=== PATIENT | female | born 1980 | race Caucasian/White ===

== ENCOUNTER 2016-04-14 18:51 | Emergency (ER) | payer BC, OTHER ==
--- NOTE | 2016-04-14 20:58 | ED ---
General Adult HPI - General Chief complaint: Animal Bite Stated complaint: dog bite Time Seen by Provider: 04/14/16 20:18 Source: patient, RN notes reviewed Mode of arrival: ambulatory Limitations: no limitations - History of Present Illness Initial comments: This is a 35-year-old female presents with multiple dog bites. Patient states she saw a stray dog and went to look to see if it had a collar when the dog bit her. Patient states this happened around 2:30 PM today. Patient does not know the refrigerator room clerk of this dog and has never seen this dog before. Patient does not have possession of the dog. Patient states he is not up-to-date on her tetanus shot. Patient denies any abnormal behavior of the dog. Patient states the dog bit her bilateral hands and bilateral upper legs. Patient denies any tingling/ weakness. Patient does admit to some mild loss of sensation to left index finger but is still able to feel pressure. Patient denies any chance of being . Patient denies any recent fever, chills, shortness breath, chest pain , abdominal pain, nausea/vomiting/diarrhea, back pain, hematuria, headache, or visual changes, or any other complaints. - Related Data Home Medications Medication Instructions Recorded Confirmed Albuterol Inhaler [Ventolin 2 puff INHALATION Q4HR PRN 08/08/13 08/08/13 Inhaler] Previous Rx's Medication Instructions Recorded Naproxen [Naprosyn] 375 mg PO Q12HR #30 tablet 08/08/13 Amoxic-Pot Clav 875-125Mg 1 tab PO Q12HR 7 Days 04/14/16 [Augmentin 875-125] Allergies Allergy/AdvReac Type Severity Reaction Status Date / Time No Known Allergies Allergy Verified 04/14/16 19:17 Review of Systems ROS Statement: Those systems with pertinent positive or pertinent negative responses have been documented in the HPI. ROS Other: All systems not noted in ROS Statement are negative. Past Medical History Past Medical History: Asthma History of Any Multi-Drug Resistant Organisms: None Reported Past Surgical History: No Surgical Hx Reported Past Psychological History: No Psychological Hx Reported Smoking Status: Never smoker Past Alcohol Use History: Rare Past Drug Use History: None Reported General Exam - General Exam Comments Initial Comments: General: The patient is awake and alert, in no distress, and does not appear acutely ill. Mouth and throat: There are moist mucous membranes and no oral lesions. Neck: The neck is supple, there is no tenderness or JVD. Cardiovascular: There is a regular rate and rhythm. No murmur, rub or gallop is appreciated. Respiratory: Lungs are clear to auscultation, respirations are non-labored, breath sounds are equal. No wheezes, stridor, rales, or rhonchi Musculoskeletal: there is ecchymosis to the medial aspect of the left thigh and right thigh surrounding multiple puncture wounds from a dog bite. There are multiple dog bites to the patient's bilateral hands, the left forearm, and left elbow. Normal ROM, no tenderness. Strength 5/5. Sensation intact. Radial Pulses equal bilaterally 2+. Capillary refill is less than 2 seconds. Neurological: A&O x 3. CN II-XII intact, There are no obvious motor or sensory deficits. Coordination appears grossly intact. Speech is normal. Skin: Multiple dog bites to bilateral thighs, and bilateral hands and to the left mid forearm. Skin is warm and dry and no rashes or lesions are noted. Psychiatric: Cooperative, appropriate mood & affect, normal judgment. Limitations: no limitations Course Vital Signs 04/14/16 04/14/16 04/14/16 19:15 21:27 23:03 Temperature 98.6 F 98.0 F 97.9 F Pulse Rate 90 80 61 Respiratory 20 16 16 Rate Blood Pressure 111/73 113/60 104/58 O2 Sat by Pulse 98 98 98 Oximetry Medical Decision Making - Medical Decision Making This is a 35-year-old female who was bitten by a stray dog around 2:30 today. On physical exam there is ecchymosis to the medial aspect of the left thigh and right thigh surrounding multiple puncture wounds from a dog bite. There are multiple dog bites to the patient's bilateral hands, the left forearm, and left elbow. Normal ROM, no tenderness. Strength 5/5. Sensation intact. Radial Pulses equal bilaterally 2+. Capillary refill is less than 2 seconds. Discussed close follow-up with the patient's family physician if the sensation does not completely return to the left index finger, although patient is able to still feel pressure to this finger. I discussed that this loss of sensation may be due to the localized swelling from the dog bites. X-rays of the left hand and forearm were done and reviewed showing: X-rays of bilateral femurs were done and reviewed: X-ray and left colon No fracture. Small foreign body or calcification seen at the distal phalanx of the index finger. X-ray left forearm: No fracture. Mild soft tissue deformity could relate laceration. X-ray femur bilateral: Negative. Bilateral femur exam. 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 Wounds were cleansed thoroughly with normal saline. No foreign bodies are noted in the wound. Patient was given rabies vaccine and rabies immune globulin. Patient was also given a tetanus vaccine. Rabies immune globulin was injected in the wounds and then given IM. Discussed with patient that she will need rabies vaccine on days 3, 7 and 14. I discussed that the patient will be put on a course of Augmentin to prevent infection. I discussed wound care. I discussed return parameters. I discussed [id number] Tylenol and Motrin as needed for any pain. I discussed rest and ice to the areas. Discussed the importance of following up with the patient's family physician. Patient will be given a referral to family physician today. Discussed that patient should follow up with PCP in one to 2 days or return to the [facility] for any worsening symptoms or for any further concerns. . Patient was receptive to this plan and patient will be discharged home. I discussed his case with attending physician Dr. Greenberg who agrees the plan as stated above. Disposition Clinical Impression: Dog bite of multiple sites Disposition: HOME SELF-CARE Instructions: Animal Bite (ED), Rabies Vaccine (By injection), Rabies (ED), Rabies Vaccine (ED) Additional Instructions: Please come in for another rabies vaccine on days 3, 7 and 14 (04/17/16, 04/21/16, ). Please finish entire course of antibiotics. Please keep wound sites clean and covered. Please watch for signs of infection. Please rest and ice the wound areas. Please use [id number] Tylenol or Motrin. Please follow- up with family doctor in the next 2 days of symptoms have not improved. Please return to emergency room if the symptoms increase or worsen or for any other concerns. Prescriptions: Amoxic-Pot Clav 875-125Mg [Augmentin 875-125] 1 tab PO Q12HR 7 Days Referrals: None,Stated [Primary Care Provider] - 1-2 days Yolanda Roy MD [STAFF PHYSICIAN] - 1-2 days Cisco Dudley MD [REFERRING] - 1-2 days Nadia Estrada III, MD [STAFF PHYSICIAN] - 1-2 days Time of Disposition: 22:49
[2016-04-14] MEDS ORDERED: RABIES IMMUNE GLOB 150 UNIT/ML 10 ML VIAL IM ONE (21:03)
[2016-04-14] MEDS ORDERED: RABIES VACCINE (PCEC) 2.5 UNIT KIT IM ONE (21:03)
[2016-04-14 21:27] VITALS: RESP 16
--- NOTE | 2016-04-14 21:31 | XR ---
EXAMINATION TYPE: XR hand complete LT DATE OF EXAM: 04/14/2016 9:24 PM COMPARISON: NONE HISTORY: Pain TECHNIQUE: 3 views FINDINGS: I see no fracture nor dislocation. Joint spaces are normal. There is a 1 mm density adjacen t to the distal phalanx of the index finger. IMPRESSION: No fracture. Small foreign body or calcification seen at the distal phalanx of the index finger.
--- NOTE | 2016-04-14 21:32 | XR ---
EXAMINATION TYPE: XR forearm LT DATE OF EXAM: 04/14/2016 9:24 PM COMPARISON: NONE HISTORY: Dog bite TECHNIQUE: 2 views FINDINGS: Soft tissue deformity is seen in the mid forearm. I see no fracture nor dislocation. IMPRESSION: No fracture. Mild soft tissue deformity could relate to laceration.
--- NOTE | 2016-04-14 21:33 | XR ---
EXAMINATION TYPE: XR femur bilateral DATE OF EXAM: 04/14/2016 9:24 PM COMPARISON: NONE HISTORY: Abrasions. TECHNIQUE: 8 views FINDINGS: I see no fracture nor dislocation. Knee joints and hip joints appear intact. Soft tissues a ppear normal. IMPRESSION: Negative bilateral femur exam.
[2016-04-14] MEDS ORDERED: DIPH,PERTUS(ACELL)TETVAC-LF 0.5 ML VIAL IM ONE (22:52)
[2016-04-14 23:05] VITALS: BP 104/58; PULSE 61; TEMP 97.9
== END 2016-04-14 23:24 | disposition home or self-care (01) ==
LOC: EC 18:51
DX: S61.452A Open bite of left hand, initial encounter (principal); S61.451A Open bite of right hand, initial encounter; S71.152A Open bite, left thigh, initial encounter; S71.151A Open bite, right thigh, initial encounter; S51.852A Open bite of left forearm, initial encounter; S51.052A Open bite, left elbow, initial encounter; W54.0XXA Bitten by dog, initial encounter
CPT/HCPCS: 90375; 90471; 90675; 90715; 96372; 99283

== ENCOUNTER → 2020-07-17 | Outpatient (CLI) | payer OTHER ==
--- NOTE | 2020-07-17 13:35 | MM ---
Reason for exam: screening (asymptomatic). Baseline mammogram. History: Took hormonal contraceptives for 6 months. Physical Findings: Nurse did not find any significant physical abnormalities on exam. MG Screening Mammo w CAD Bilateral CC and MLO view(s) were taken. The breast tissue is heterogeneously dense. This may lower the sensitivity of mammography. Finding: There are indeterminate round calcifications in the left breast. Focal asymmetry 7mm anterior depth central MLO view only. These results were verbally communicated with the patient and result sheet given to the patient on 07/17/20. ASSESSMENT: Incomplete: need additional imaging evaluation, BI-RAD 0 RECOMMENDATION: Special view mammogram of the left breast.
--- NOTE | 2020-07-17 13:36 | MM ---
Reason for exam: additional evaluation requested from abnormal screening. History: Took hormonal contraceptives for 6 months. Physical Findings: Breast exam preformed at baseline screening. MG Work Up Mamm w CAD LT LM and spot compression MLO view(s) were taken of the left breast. The breast tissue is heterogeneously dense. This may lower the sensitivity of mammography. No distinct lesion persists in the left breast. These results were verbally communicated with the patient and result sheet given to the patient on 07/17/20. ASSESSMENT: Negative, BI-RAD 1 RECOMMENDATION: Return to routine screening mammogram schedule for both breasts.
== END | disposition home or self-care (01) ==
LOC: RADMAMWWP 10:08
PROVIDERS: ATTEND Internal Medicine
DX: Z12.31 Encounter for screening mammogram for malignant neoplasm of breast (principal); R92.8 Other abnormal and inconclusive findings on diagnostic imaging of breast
CPT/HCPCS: 77065; 77067

== ENCOUNTER 2021-08-25 23:25 | Emergency (ER) | payer OTHER ==
[2021-08-25 23:31] VITALS: RESP 18
--- NOTE | 2021-08-26 00:08 | XR ---
EXAMINATION TYPE: XR chest 2V DATE OF EXAM: 08/25/2021 COMPARISON: NONE HISTORY: Chest pain TECHNIQUE: 2 view FINDINGS: Heart and mediastinum are normal. Lungs are clear. Diaphragm is normal. Bony thorax appears normal. IMPRESSION: Normal chest
[2021-08-26 00:10] LABS: INR 0.9 (<1.2)
[2021-08-26 00:11] LABS: Partial Thromboplastin Time 27.1 sec (22.0-30.0); Prothrombin Time 9.9 sec (9.0-12.0)
[2021-08-26 00:12] LABS: ALT 20 U/L (4-34); AST 29 U/L (14-36); African American GFR (CKD) >90 (>60 ml/min/1.73 sqM); Albumin 4.1 g/dL (3.5-5.0); Alkaline Phosphatase 73 U/L (38-126); Anion Gap 5 mmol/L; Blood Urea Nitrogen 10 mg/dL (7-17); Calcium 8.6 mg/dL (8.4-10.2); Carbon Dioxide 23 mmol/L (22-30); Chloride 109 mmol/L (98-107); Glucose 92 mg/dL (74-99); Magnesium 2.2 mg/dL (1.6-2.3); Non-African American GFR(CKD) >90 (>60 ml/min/1.73 sqM); Potassium 4.1 mmol/L (3.5-5.1); Sodium 137 mmol/L (137-145); Total Bilirubin 0.2 mg/dL (0.2-1.3); Total Protein 6.8 g/dL (6.3-8.2)
[2021-08-26 00:13] LABS: Basophils # (A) 0.1 k/uL (0-0.2); Basophils % (A) 1 %; Eosinophils # (A) 0.3 k/uL (0-0.7); Eosinophils % (A) 5 %; HGB 13.5 gm/dL (11.4-16.0); Lymphocytes # (A) 2.1 k/uL (1.0-4.8); Lymphocytes % (A) 31 %; MCHC 32.2 g/dL (31.0-37.0); MCV 96.3 fL (80.0-100.0); Mean Platelet Volume 9.8; Monocytes # (A) 0.3 k/uL (0-1.0); Monocytes % (A) 5 %; Neutrophils # (A) 3.7 k/uL (1.3-7.7); Neutrophils % (A) 56 %; Platelet Count 217 k/uL (150-450); RBC 4.37 m/uL (3.80-5.40); RDW 13.8 % (11.5-15.5); WBC 6.6 k/uL (3.8-10.6)
--- NOTE | 2021-08-26 03:07 | ED ---
Chest Pain HPI - General Chief Complaint: Chest Pain Stated Complaint: chest pain, vag bleeding Time Seen by Provider: 08/26/21 02:01 Source: patient, RN notes reviewed, old records reviewed Mode of arrival: ambulatory Limitations: no limitations - History of Present Illness Initial Comments: This is a 41-year-old female to the emergency department for evaluation. Patient comes in for chest pain as a smoker with no medical history patient has no high blood pressure or cholesterol or diabetes. Patient is no travel history or sick contacts. Patient is of shortness of breath no cough or congestion no fevers. Patient concern for substernal left-sided chest pain with a little anxiety. MD Complaint: chest pain -: days(s) Onset: during rest, during exertion Pain Location: substernal, left chest Pain Radiation: none Severity: mild Severity scale (1-10): 3 Quality: tightness Consistency: intermittent Improves With: nothing Worsens With: nothing Other Symptoms: palpitations Treatments Prior to Arrival: none - Related Data Home Medications Medication Instructions Recorded Confirmed Albuterol Inhaler [Ventolin 2 puff INHALATION Q4HR PRN 08/08/13 08/08/13 Inhaler] Previous Rx's Medication Instructions Recorded Naproxen [Naprosyn] 375 mg PO Q12HR #30 tablet 08/08/13 Amoxic-Pot Clav 875-125Mg 1 tab PO Q12HR 7 Days tablet 04/14/16 [Augmentin 875-125] Allergies Allergy/AdvReac Type Severity Reaction Status Date / Time No Known Allergies Allergy Verified 08/25/21 23:31 Review of Systems ROS Statement: Those systems with pertinent positive or pertinent negative responses have been documented in the HPI. ROS Other: All systems not noted in ROS Statement are negative. Past Medical History Past Medical History: Asthma History of Any Multi-Drug Resistant Organisms: None Reported Past Surgical History: No Surgical Hx Reported Past Psychological History: Depression Smoking Status: Current every day smoker Past Alcohol Use History: Rare Past Drug Use History: None Reported General Exam Limitations: no limitations General appearance: alert, in no apparent distress, anxious Head exam: Present: atraumatic, normocephalic, normal inspection Eye exam: Present: normal appearance, PERRL, EOMI. Absent: scleral icterus, conjunctival injection, periorbital swelling ENT exam: Present: normal exam, mucous membranes moist Neck exam: Present: normal inspection. Absent: tenderness, meningismus, lymphadenopathy Respiratory exam: Present: normal lung sounds bilaterally. Absent: respiratory distress, wheezes, rales, rhonchi, stridor Cardiovascular Exam: Present: regular rate, normal rhythm, normal heart sounds. Absent: systolic murmur, diastolic murmur, rubs, gallop, clicks GI/Abdominal exam: Present: soft, normal bowel sounds. Absent: distended, tenderness, guarding, rebound, rigid Extremities exam: Present: normal inspection, full ROM, normal capillary refill. Absent: tenderness, pedal edema, joint swelling, calf tenderness Back exam: Present: normal inspection Neurological exam: Present: alert, oriented X3, CN II-XII intact Psychiatric exam: Present: normal affect, normal mood Skin exam: Present: warm, dry, intact, normal color. Absent: rash Course Vital Signs 08/25/21 08/26/21 08/26/21 23:29 02:10 03:38 Temperature 98.3 F 97.8 F Pulse Rate 76 62 64 Respiratory 18 18 18 Rate Blood Pressure 142/73 136/84 132/91 O2 Sat by Pulse 97 98 97 Oximetry - Reevaluation(s) Reevaluation #1: 08/26/21 Medical record is reviewed Reevaluation #2: 08/26/21 Patient informed results and questions are answered Reevaluation #3: 08/26/21 patient chest pain is resolved here in the ER Chest Pain MDM - MDM 41 female with atypical chest pain. Patient's chest pain is resolved here in the ER, this time her symptoms are improving she can be discharged home Disposition Clinical Impression: Chest pain, Atypical chest pain Disposition: HOME SELF-CARE Condition: Good Instructions (If sedation given, give patient instructions): Chest Pain (ED) Is patient prescribed a controlled substance at d/c from ED?: No Referrals: Ian Cuello MD [Primary Care Provider] - 1-2 days Time of Disposition: 03:00
[2021-08-26 03:39] VITALS: BP 132/91; PULSE 64; TEMP 97.8
== END 2021-08-26 03:41 | disposition home or self-care (01) ==
LOC: EC 23:25
DX: R07.89 Other chest pain (principal); J45.909 Unspecified asthma, uncomplicated; F17.200 Nicotine dependence, unspecified, uncomplicated
CPT/HCPCS: 36415; 71046; 80053; 83735; 84484; 85025; 85610; 85730; 93005

== ENCOUNTER → 2022-09-02 | Outpatient (CLI) | payer OTHER ==
--- NOTE | 2022-09-02 08:41 | XR ---
EXAMINATION TYPE: XR chest 2V DATE OF EXAM: 09/02/2022 COMPARISON: 08/25/2021 HISTORY: Chest pain TECHNIQUE: Frontal and lateral views of the chest are obtained. FINDINGS: There is no focal air space opacity. No evidence for pneumothorax. No pleural effusion. The cardiac silhouette size is within normal limits. The osseous structures are grossly intact. IMPRESSION: 1. No acute cardiopulmonary process.
--- NOTE | 2022-09-03 08:28 | MM ---
Reason for Exam: Screening (asymptomatic). Last mammogram was performed 1 year(s) and 1 month(s) ago. Patient History: Menarche at age 11. First Full-Term at age 16. Right ovary removed at age 41. Hormonal Contraceptives for 6 months. Risk Values: Linh 5 year model risk: 0.6%. NCI Lifetime model risk: 7.1%. Prior Study Comparison: 07/17/2020 Bilateral Screening Mammogram, [facility]. 07/17/2020 Left Diagnostic Mammogram, [facility]. 07/20/2021 Bilateral Screening Mammogram, [facility]. Tissue Density: The breast tissue is heterogeneously dense. This may lower the sensitivity of mammography. Findings: Analyzed By CAD. There is no suspicious group of microcalcifications or new suspicious mass in either breast. Overall Assessment: Negative, BI-RAD 1 Management: Screening Mammogram of both breasts in 1 year. . Patient should continue monthly self-breast exams. A clinical breast exam by your physician is recommended on an annual basis. This exam should not preclude additional follow-up of suspicious palpable abnormalities. Note on Linh scores and lifetime risk: 1. A Linh score greater than 3% is considered moderate risk. If this is the case, consider specialist referral to assess eligibility for a risk reducing agent. 2. If overall lifetime risk for the development of breast cancer is 20% or higher, the patient may qualify for future screening with alternating mammogram and breast MRI. Electronically signed and approved by: Jeff Meza M.D. Radiologis
== END | disposition home or self-care (01) ==
LOC: RADMAMWWP 08:09
PROVIDERS: ATTEND Internal Medicine
DX: Z12.31 Encounter for screening mammogram for malignant neoplasm of breast (principal); R07.9 Chest pain, unspecified
CPT/HCPCS: 71046; 77067

== ENCOUNTER 2023-08-17 10:48 | Day surgery (SDC) | payer OTHER ==
[2023-08-16 10:29] VITALS: BMI 33.2
[2023-08-17 11:27] VITALS: RESP 16; TEMP 97.2
[2023-08-17] MEDS: LACTATED RINGERS 1,000 ML IV SCH (11:35)
[2023-08-17] MEDS: IV FLUID CONTINUATION 1,000 ML IV ONE ×2 (11:35→13:02)
[2023-08-17] MEDS ORDERED: PROPOFOL 10 MG/ML 20 ML VIAL IV ONE (13:05)
--- NOTE | 2023-08-17 13:20 | P.PCN ---
Date of Procedure: 08/17/23 Procedure(s) Performed: BRIEF HISTORY: Patient is a 43-year-old pleasant white female scheduled for an elective colonoscopy as a part of screening for colon cancer. PROCEDURE PERFORMED: Colonoscopy. PREOPERATIVE DIAGNOSIS: Screening for colon cancer. IV sedation per Anesthesia. PROCEDURE: After informed consent was obtained, the patient, was brought into the endoscopy unit. IV sedation was administered by Anesthesia under continuous monitoring. Digital rectal examination was normal. Initially the Olympus CF-160 flexible video colonoscope was then inserted in the rectum, gradually advanced into the cecum without any difficulty. Careful examination was performed as the scope was gradually being withdrawn. Ileocecal valve and the appendiceal orifice were visualized and appeared normal. Prep was excellent. Mucosa of the cecum, ascending colon, transverse colon, descending colon, sigmoid colon, and rectum appeared normal. Retroflexion was performed in the rectum and no lesions were seen. The patient tolerated the procedure well. IMPRESSION: Normal-appearing colon from rectum to cecum with no evidence of colorectal neoplasia. RECOMMENDATIONS: Findings of this examination were discussed with the patient as well as her family. She was advised to have repeat screening colonoscopy in 10 years..
[2023-08-17 13:27] VITALS: PULSE 58
[2023-08-17 13:43] VITALS: BP 103/55
== END 2023-08-17 13:56 | disposition home or self-care (01) ==
LOC: ORWHC2ENDO 10:48
PROVIDERS: ATTEND Internal Medicine Gastroenterology
DX: Z12.11 Encounter for screening for malignant neoplasm of colon (principal); J45.909 Unspecified asthma, uncomplicated; G43.909 Migraine, unspecified, not intractable, without status migrainosus; Z79.82 Long term (current) use of aspirin; Z79.51 Long term (current) use of inhaled steroids
CPT/HCPCS: 81025; 45378; J2704

== ENCOUNTER → 2023-09-05 | Outpatient (CLI) | payer OTHER ==
--- NOTE | 2023-09-06 13:02 | MM ---
Reason for Exam: Screening (asymptomatic). Last screening mammogram was performed 12 month(s) ago. Patient History: Menarche at age 11. First Full-Term at age 16. Right ovary removed at age 41. Patient has history of breast feeding. Hormonal Contraceptives for 6 months. Risk Values: Linh 5 year model risk: 0.6%. NCI Lifetime model risk: 7.0%. Prior Study Comparison: 07/17/2020 Left Diagnostic Mammogram, [facility]. 07/20/2021 Bilateral Screening Mammogram, [facility]. 09/02/2022 Bilateral MG screening mammo w CAD, [facility]. Tissue Density: The breasts are heterogeneously dense, which may obscure small masses. Findings: Analyzed By CAD. Right breast: There is no suspicious group of microcalcifications or new suspicious mass. Left breast: There is no suspicious group of microcalcifications or new suspicious mass. Overall Assessment: Negative, BI-RAD 1 Management: Screening Mammogram of both breasts in [address] [facility] will attempt to contact patient to return for supplemental views and ultrasound if indicated. Patient should continue monthly self-breast exams. A clinical breast exam by your physician is recommended on an annual basis. This exam should not preclude additional follow-up of suspicious palpable abnormalities. Note on Linh scores and lifetime risk: 1. A Linh score greater than 3% is considered moderate risk. If this is the case, consider specialist referral to assess eligibility for a risk reducing agent. 2. If overall lifetime risk for the development of breast cancer is 20% or higher, the patient may qualify for future screening with alternating mammogram and breast MRI. Electronically signed and approved by: Jeremi Veloz DO
== END | disposition home or self-care (01) ==
LOC: RADMAMWWP 16:11
PROVIDERS: ATTEND Internal Medicine
DX: Z12.31 Encounter for screening mammogram for malignant neoplasm of breast (principal); R92.333 Mammographic heterogeneous density, bilateral breasts
CPT/HCPCS: 77067